=== PATIENT | female | born 1985 ===

== ENCOUNTER 2025-04-03 21:10 | Emergency (ER) | payer BC ==
[2025-04-03 23:21] LABS: APPEARANCE,URINE CLEAR (Clear); GLUCOSE,URINE NEGATIVE (Negative); OCCULT BLOOD,URINE 3+ (Negative)
[2025-04-03 23:58] LABS: EPITHELIAL CELLS,URINE 0-5 /hpf (0-5)
== END 2025-04-04 00:40 | disposition home or self-care (01) ==
LOC: JD.ED 21:10
DX: O20.9 Hemorrhage in early pregnancy, unspecified (principal); Z3A.01 Less than 8 weeks gestation of pregnancy
CPT/HCPCS: 36415; 76801; 76801-26; 81001; 84702; 86900; 86901; 99283; 99284